=== PATIENT | male | born 1955 | race Caucasian/White ===

== ENCOUNTER → 2017-09-17 12:31 | Outpatient (CLI) | payer OTHER, SELFPAY ==
--- NOTE | 2017-09-17 12:34 | VDLE_ITS ---
Reason For Study: BLE pain/edema RIGHT LEFT GSV is normal. GSV is normal. CFV is compressible, spontaneous, phasic, CFV is compressible, spontaneous, phasic, competent and demonstrates normal competent, and demonstrates normal augmentation. augmentation. FV is compressible, spontaneous, phasic, FV is compressible, spontaneous, phasic, competent and demonstrates normal competent and demonstrates normal augmentation. augmentation. POP V is compressible, spontaneous, phasic, POP V is compressible, spontaneous, phasic, competent and demonstrates normal competent and demonstrates normal augmentation. augmentation. T/P Trunk is compressible. T/P Trunk is compressible. PTV is compressible. PTV is compressible. RT PerV is compressible. LT PerV is compressible. Procedure Exam performed in department. The exam was diagnostic. A preliminary report was called and/or faxed to Richard DICKERSON @ 1:15 pm. Interpretation Summary Deep veins of the lower extremities are bilaterally patent and compressible segmentally. There is no evidence of deep vein thrombosis on either side. Valvular competence appears intact within the proximal deep venous systems bilaterally. The greater saphenous veins appear bilaterally patent and compressible segmentally. Ordering Physician: JAYLA Hurley Referring Physician: Richard Botello Performed By: Leticia Sanchez, RDCS, RVT
== END ==
PROVIDERS: Family Provider Nurse Practitioner Family; PCP Nurse Practitioner Family; Visit Provider Nurse Practitioner Family
DX: M79.604 Pain in right leg (principal); M79.605 Pain in left leg; I10 Essential (primary) hypertension
CPT/HCPCS: 93970

== ENCOUNTER → 2017-09-27 12:35 | Outpatient (CLI) | payer OTHER, SELFPAY ==
--- NOTE | 2017-09-29 20:22 | LEAS ---
Arterial Study - Arterial Study Arterial Study: This is a 62-year-old male with a history of hypertension. Suspecting the presence of atherosclerotic peripheral arterial occlusive disease, the patient was brought to the noninvasive vascular laboratory at this time for the purpose of bilateral noninvasive lower extremity arterial assessment. Doppler signal assessment was used to evaluate the pulses at ankle level bilaterally. The posterior tibial and dorsalis pedis pulses were triphasic bilaterally. Segmental limb pressures were obtained bilaterally. The right ankle pressure, as determined by posterior tibial pulse, was measured at 155 mmHg. The right ankle pressure, as determined by dorsalis pedis pulse, was measured at 139 mmHg. The right digital pressure was measured at 127 mmHg. The left ankle pressure, as determined by posterior tibial pulse, was measured at 155 mmHg. The left ankle pressure, as determined by dorsalis pedis pulse, was measured at 130 mmHg. The left digital pressure was measured at 111 mmHg. Pulse-volume recordings were obtained bilaterally and segmentally. Waveform amplitudes appeared to be satisfactory at all levels bilaterally, but for the left digital level, which was mildly diminished. Resting ankle-brachial indices were calculated bilaterally. The resting right ankle-brachial index was calculated to be 1.38. The resting left ankle-brachial index was calculated to be 1.38. Digital-brachial indices were calculated bilaterally. The right digital-brachial index was calculated to be 1.13. The left digital-brachial index was calculated to be 0.99. Impression: Based upon the findings of this resting noninvasive lower extremity arterial study, there is no evidence of significant atherosclerotic peripheral arterial occlusive disease in the lower extremities bilaterally. Triphasic waveforms were noted at ankle level bilaterally. Resting ankle-brachial indices were bilaterally normal. Digital-brachial indices were also normal bilaterally. In summary, this represents a normal resting noninvasive lower extremity arterial study bilaterally
--- NOTE | 2017-09-29 20:26 | LEAS_ITS ---
Arterial Study - Arterial Study Arterial Study: This is a 62-year-old male with a history of hypertension. Suspecting the presence of atherosclerotic peripheral arterial occlusive disease, the patient was brought to the noninvasive vascular laboratory at this time for the purpose of bilateral noninvasive lower extremity arterial assessment. Doppler signal assessment was used to evaluate the pulses at ankle level bilaterally. The posterior tibial and dorsalis pedis pulses were triphasic bilaterally. Segmental limb pressures were obtained bilaterally. The right ankle pressure, as determined by posterior tibial pulse, was measured at 155 mmHg. The right ankle pressure, as determined by dorsalis pedis pulse, was measured at 139 mmHg. The right digital pressure was measured at 127 mmHg. The left ankle pressure, as determined by posterior tibial pulse, was measured at 155 mmHg. The left ankle pressure, as determined by dorsalis pedis pulse, was measured at 130 mmHg. The left digital pressure was measured at 111 mmHg. Pulse-volume recordings were obtained bilaterally and segmentally. Waveform amplitudes appeared to be satisfactory at all levels bilaterally, but for the left digital level, which was mildly diminished. Resting ankle-brachial indices were calculated bilaterally. The resting right ankle-brachial index was calculated to be 1.38. The resting left ankle- brachial index was calculated to be 1.38. Digital-brachial indices were calculated bilaterally. The right digital- brachial index was calculated to be 1.13. The left digital-brachial index was calculated to be 0.99. Impression: Based upon the findings of this resting noninvasive lower extremity arterial study, there is no evidence of significant atherosclerotic peripheral arterial occlusive disease in the lower extremities bilaterally. Triphasic waveforms were noted at ankle level bilaterally. Resting ankle-brachial indices were bilaterally normal. Digital-brachial indices were also normal bilaterally. In summary, this represents a normal resting noninvasive lower extremity arterial study bilaterally
== END ==
PROVIDERS: Family Provider Nurse Practitioner Family; PCP Nurse Practitioner Family; Visit Provider Nurse Practitioner Family
DX: I89.0 Lymphedema, not elsewhere classified (principal); M79.604 Pain in right leg; M79.605 Pain in left leg; I10 Essential (primary) hypertension
CPT/HCPCS: 93923

== ENCOUNTER → 2017-10-14 16:00 | Outpatient (CLI) | payer OTHER, SELFPAY ==
[2017-10-14 17:56] LABS: Absolute Lymphocyte Count 0.68 X10^3/ul (0.83-4.51); Absolute Neutrophil Count 6.3 X10^3/uL (2.0-7.7); Basophil# 0.05 X10^3/uL; Basophil% 0.6 % (0-1); Eosinophil# 0.36 X10^3/uL; Eosinophils% 4.4 % (0-5); Hematocrit 41.5 % (40-54); Hemoglobin 14.2 g/dl (13.0-16.5); Lymphocyte # 0.68 X10^3/ul (4.0); Lymphocyte % 8.3 % (19-41); Mean Corp Hgb Conc 34.2 g/gl (32-36); Mean Corpuscular Hgb 33.6 pg (27.0-32.0); Mean Corpuscular Volume 98.1 fL (80-94); Mean Platelet Vol. 8.8 fl (6.2-12.0); Monocyte# 0.75 X10^3/uL; Monocyte% 9.2 % (0-10); Neutrophil # 6.28 X10^3/uL (2.7-7.7); Neutrophil % 77.1 % (47-70); Platelet Count 239 K/mm3 (150-450); RBC Distribution Width CV 13.3 % (11.6-14.6); RBC Distribution Width SD 46.4 fl (35.1-43.9); Red Blood Count 4.23 M/mm3 (4.6-6.2); White Blood Count 8.2 K/mm3 (4.4-11.0)
[2017-10-14 18:07] LABS: POSITIVE COUNT NO; POSITIVE DIFFERENTIAL NO; POSITIVE MORPHOLOGY NO
[2017-10-14 18:25] LABS: ALB/GLOB Ratio 1.1 RATIO (0.9-2.4); AST(SGOT) 18 U/L (15-37); Alanine Aminotransfer ALT/SGPT 26 U/L (16-61); Albumin, Serum 3.5 g/dL (3.2-5.0); Alkaline Phosphatase 71 U/L (45-117); Anion Gap 6 (5-15); BUN 11 mg/dL (7-18); BUN/Creat Ratio 16.2 RATIO (10-20); Calcium,Total 8.4 mg/dL (8.5-10.1); Chloride 98 mmol/L (98-107); Creatinine, Serum 0.68 mg/dL (0.70-1.30); EST Glomerular Filtration Rate 125 mL/min (>60); Est Glom Filt Rate - Afr Amer 152 mL/min (>60); Globulin 3.2 g/dL (2.2-4.2); Glucose 99 mg/dL (74-106); Potassium 3.8 mmol/L (3.5-5.1); Protein, Total 6.7 g/dL (6.4-8.2); Sodium Level 134 mmol/L (136-145)
[2017-10-19 08:12] LABS: QNTFERON TB Ag Minus Nil Value 0.01 IU/mL (.); QNTFERON TB Ag Value 0.04 IU/mL (.); QNTFERON TB Nil Value 0.03 IU/mL (.)
[2017-10-19 11:17] LABS: QNTIFERON TB Gold Negative (Negative)
== END ==
PROVIDERS: Family Provider Family Medicine; PCP Family Medicine; Visit Provider Nurse Practitioner Family
DX: L27.0 Generalized skin eruption due to drugs and medicaments taken internally (principal); L40.0 Psoriasis vulgaris; R60.0 Localized edema; Z79.899 Other long term (current) drug therapy; I83.12 Varicose veins of left lower extremity with inflammation; I83.11 Varicose veins of right lower extremity with inflammation
CPT/HCPCS: 36415; 80053; 84443; 85025; 86480

== ENCOUNTER → 2017-10-19 09:41 | Outpatient (CLI) | payer OTHER, SELFPAY ==
--- NOTE | 2017-10-19 09:43 | RAD_ITS ---
STUDY: X-RAY - PELVIS REASON FOR EXAM: Male, 62 years old. Psoriasis, lymphedema TECHNIQUE: Two views of the pelvis were obtained. COMPARISON: Lumbar spine 08/05/2015. FINDINGS: There is a non-specific bowel gas pattern. Normal visualized soft tissue structures. Normal bilateral iliac wings and visualized sacrum. Stable degenerative change inferior aspect of left sacroiliac joint. Normal visualized bilateral superior and inferior pubic rami. Normal pubic symphysis. Normal ischial tuberosities. Normal visualized right femoral head. Normal right acetabulum. There is mild articular joint space narrowing of the right hip. Normal visualized left femoral head. Normal left acetabulum. There is mild articular joint space narrowing of the left hip. RAD/Pelvis 1 or 2 Views IMPRESSION: Mild bilateral hip joint space narrowing. No fracture. Electronically Signed: Dave Mancuso DO at 0:03 EDT , Service support ,
--- NOTE | 2017-10-19 09:44 | RAD_ITS ---
STUDY: X-RAY CHEST REASON FOR EXAM: Male, 62 years old. Lymphedema, hypertension TECHNIQUE: Frontal and lateral views of the chest. COMPARISON: 11/30/2012. FINDINGS: The lungs are clear and expanded. There is no demonstrated pleural abnormality. Normal size heart. Normal mediastinum and shlomo. Normal visualized pulmonary arteries. Normal visualized aortic arch and descending thoracic aorta. Normal visualized thoracic spine. Normal visualized ribs, clavicles, and shoulders. There is no demonstrated abnormality of the visualized soft tissue structures of the upper abdomen. RAD/Chest PA and Lateral IMPRESSION: No acute cardiopulmonary disease. Electronically Signed: Dave Mancuso DO at 23:58 EDT , Service support ,
[2017-10-19 12:07] LABS: Absolute Lymphocyte Count 1.03 X10^3/ul (0.83-4.51); Absolute Neutrophil Count 3.5 X10^3/uL (2.0-7.7); Basophil% 1.5 % (0-1); Eosinophil# 0.92 X10^3/uL; Hematocrit 43.2 % (40-54); Hemoglobin 14.8 g/dl (13.0-16.5); Lymphocyte # 1.03 X10^3/ul (4.0); Lymphocyte % 15.7 % (19-41); Mean Corp Hgb Conc 34.3 g/gl (32-36); Mean Corpuscular Hgb 33.3 pg (27.0-32.0); Mean Corpuscular Volume 97.1 fL (80-94); Mean Platelet Vol. 9.1 fl (6.2-12.0); Monocyte% 15.3 % (0-10); Neutrophil # 3.48 X10^3/uL (2.7-7.7); Neutrophil % 53.2 % (47-70); Platelet Count 268 K/mm3 (150-450); RBC Distribution Width CV 13.6 % (11.6-14.6); RBC Distribution Width SD 46.9 fl (35.1-43.9); Red Blood Count 4.45 M/mm3 (4.6-6.2); White Blood Count 6.6 K/mm3 (4.4-11.0)
[2017-10-19 12:12] LABS: POSITIVE COUNT NO; POSITIVE DIFFERENTIAL NO; POSITIVE MORPHOLOGY NO
[2017-10-19 12:14] LABS: ALB/GLOB Ratio 1.2 RATIO (0.9-2.4); AST(SGOT) 25 U/L (15-37); Alanine Aminotransfer ALT/SGPT 32 U/L (16-61); Albumin, Serum 3.9 g/dL (3.2-5.0); Alkaline Phosphatase 70 U/L (45-117); Anion Gap 8 (5-15); BUN 17 mg/dL (7-18); BUN/Creat Ratio 19.2 RATIO (10-20); Calcium,Total 8.6 mg/dL (8.5-10.1); Chloride 93 mmol/L (98-107); Creatinine, Serum 0.89 mg/dL (0.70-1.30); EST Glomerular Filtration Rate 92 mL/min (>60); Est Glom Filt Rate - Afr Amer 111 mL/min (>60); Globulin 3.3 g/dL (2.2-4.2); Glucose 97 mg/dL (74-106); Potassium 4.2 mmol/L (3.5-5.1); Protein, Total 7.2 g/dL (6.4-8.2); Sodium Level 130 mmol/L (136-145)
[2017-10-25 12:07] LABS: QNTFERON TB Ag Minus Nil Value < 0 IU/mL (.); QNTFERON TB Ag Value 0.02 IU/mL (.); QNTFERON TB Mitogen Value > 10.00 IU/mL (.); QNTFERON TB Nil Value 0.03 IU/mL (.)
[2017-10-25 14:47] LABS: CCP IgG Antibodies 17 units (0-19); HEPATITIS B SURFACE AG Negative (Negative); HLA B27 Negative (.); Hep B Surface Antibodies Non Reactive (.); Hep C Antibodies >11.0 s/co ratio (0.0-0.9); QNTIFERON TB Gold Negative (Negative)
== END ==
PROVIDERS: Family Provider Family Medicine; PCP Family Medicine; Visit Provider Internal Medicine Rheumatology
DX: L40.8 Other psoriasis (principal); I89.0 Lymphedema, not elsewhere classified; I10 Essential (primary) hypertension
CPT/HCPCS: 36415; 71046; 72170; 80053; 81374; 85025; 86200; 86480; 86706; 86803; 87340

== ENCOUNTER → 2017-10-27 09:31 | Outpatient (CLI) | payer OTHER, SELFPAY ==
--- NOTE | 2017-10-27 09:37 | ECHOD_ITS ---
Reason For Study: Edema Procedure This was a 2D Doppler, Color Flow transthoracic echocardiogram. Exam performed in department. Left Ventricle Normal size and thickness. The estimated ejection fraction is 65 %. Normal diastology for age. No regional wall motion abnormalities noted. Right Ventricle Normal size and thickness. Normal systolic function. Atria Normal left atrium. Normal right atrium. Normal atrial septum. Mitral Valve The mitral valve is structurally normal. No prolapse or stenosis seen. Trivial mitral valve insufficiency. Tricuspid Valve Normal tricuspid valve. Trivial tricuspid valve insufficiency. Right ventricular systolic pressure estimated to be 27 mmHg. Aortic Valve Trisinus/trileaflet aortic valve. Normal aortic valve. Pulmonic Valve Normal pulmonic valve. Great Vessels Normal aortic root. Normal arch. Normal inferior vena cava. Inferior vena cava collapse with sniff. Pericardium/Pleural No pericardial effusion. MMode/2D Measurements & Calculations LVIDd: 4.8 cm IVSd: 1.2 cm Ao root diam: 3.6 cm LVIDs: 3.4 cm LVPWd: 1.2 cm LA dimension: 3.7 cm RVDd: 4.1 cm FS: 29.2 % LAV(MOD-bp): 45.3 ml LA A4 area: 14.9 cm2 RA A4 area: 17.0 cm2 LAV(MOD-bp) Indexed: 19.6 ml/m2 LAV(MOD-sp2): 52.6 ml LAV(MOD-sp4): 31.3 ml Doppler Measurements & Calculations MV E max xavier: 96.7 cm/sec Lat Peak E' Xavier: 9.3 cm/sec Med Peak E' Xavier: 7.4 cm/sec MV A max xavier: 87.3 cm/sec E/E' lat: 10.4 E/E' med: 13.0 MV E/A: 1.1 Ao V2 max: 125.9 cm/sec LV V1 max: 101.8 cm/sec PA V2 max: 103.4 cm/sec Ao max P.3 mmHg LV V1 max P.1 mmHg Ao V2 mean: 94.6 cm/sec Ao mean P.8 mmHg Ao V2 VTI: 29.1 cm TR max xavier: 234.3 cm/sec TR max P.0 mmHg Interpretation Summary The estimated ejection fraction is 65 %. Normal diastology for age. Trivial mitral valve insufficiency. Trivial tricuspid valve insufficiency. Right ventricular systolic pressure estimated to be 27 mmHg. There is no comparison study available. Ordering Physician: Zafar Mon Referring Physician: Zafar Mon Performed By: Alissa Perez, WALTER, RVT
== END ==
PROVIDERS: Family Provider Family Medicine; PCP Family Medicine; Visit Provider Family Medicine
DX: R60.0 Localized edema (principal)
CPT/HCPCS: 93306

== ENCOUNTER → 2017-11-01 12:18 | Outpatient (CLI) | payer OTHER, SELFPAY ==
[2017-11-02 20:09] LABS: HCV Quant. RNA PCR HCV Not Detected IU/mL (.)
== END ==
PROVIDERS: Family Provider Family Medicine; PCP Family Medicine; Visit Provider Internal Medicine Rheumatology
DX: L40.8 Other psoriasis (principal); I89.0 Lymphedema, not elsewhere classified; I87.2 Venous insufficiency (chronic) (peripheral); I10 Essential (primary) hypertension
CPT/HCPCS: 36415; 87522

== ENCOUNTER → 2017-11-15 13:02 | Outpatient (CLI) | payer OTHER, SELFPAY ==
[2017-11-15 14:16] LABS: Anion Gap 7 (5-15); BUN 17 mg/dL (7-18); BUN/Creat Ratio 20.2 RATIO (10-20); Calcium,Total 8.2 mg/dL (8.5-10.1); Chloride 95 mmol/L (98-107); Creatinine, Serum 0.84 mg/dL (0.70-1.30); EST Glomerular Filtration Rate 98 mL/min (>60); Est Glom Filt Rate - Afr Amer 119 mL/min (>60); Glucose 101 mg/dL (74-106); PSA,Total - Annual Screen 0.88 ng/mL (0.00-4.00); Potassium 3.7 mmol/L (3.5-5.1); Sodium Level 134 mmol/L (136-145)
== END ==
PROVIDERS: Family Provider Family Medicine; PCP Family Medicine; Visit Provider Family Medicine
DX: Z12.5 Encounter for screening for malignant neoplasm of prostate (principal); I89.0 Lymphedema, not elsewhere classified
CPT/HCPCS: 36415; 80048; 84153; G0103

== ENCOUNTER 2017-11-23 12:42 | Outpatient (RCR) | payer OTHER, SELFPAY ==
--- NOTE | 2017-11-23 14:34 | HP.OTEVAL ---
Patient's Visit Information SARAH CATHERINE is a 62 year old M, referred to Occupational Therapy by Zafar Mon, with a diagnosis of Lymphedema. Date of Evaluation: 11/23/17 Occupational Therapist: Caitlin Kiran, CYNTHIAR/L, CHT - Subjective Subjective: Pt reports he has been struggling with swelling in his LE- Aug 2017- pt states he is attempting to keep his YOON elevated- with water pill and use of walking shoes-due to cracks on the bottom of his feet. pt states he has been off work for three months- and would like to get back to work- Pt states he does have compression socks- 20-30mmHg pt states he got them at [employer] -pt states he is wearing his compression socks at times but nothing consistent. - Lymphedema (Circumferential Measure) Mid-foot: R/L 29cm/28cm Ankle: R/L 32cm/31cm Lower calf: R/L 35cm/32cm Largest calf: R/L 44cm/43cm Below knee: R/L 36cm/37cm - Sensation Sensation Comments: denies - Lower Limb Functional Index Lower Extremity Functional Score: 19 - Goals Demonstrate a 20% reduction in edema by d/c: Yes Demonstrate adequate knowledge of self-massage by 2nd week: Yes Demonstrate adequate knowledge skin care/prec by 2nd week: Yes Demonstrate adequate knowledge therapeutic exercises by d/c: Yes Select approp compression garment w/donning/care/wear by d/c: Yes Voice need to replace compression garment every 4-6mo by dc: Yes - Rehabilitation General Assessment: Pt demo with edema in BLE- Red sores and seeping of LE from above knees down to his feet- dried scabs over seeping wounds. Rehabilitation Potential: Fair - Anticipated Interventions Anticipated Interventions: Education re Diagnosis, Manual Lymph Drainage, Education re Life-long lymphedema Management, Education re Skin Care and Precautions, Education re Correct Donning Tech,Care&Wearing Sched Comp Garments - Visit Plan Frequency: Every Other Week Duration: 2 Months TEXT: Thank you for the opportunity to evaluate your patient. For Medicare and Medicare HMO plans, please review the plan of care and approve it. It will need to be FAXED BACK to us at [phone] for Medicare purposes. Please let me know if there are questions or concerns regarding this plan of care. Physician Signature: Date:
--- NOTE | 2018-01-19 09:21 | HP.OT.NRP ---
HP - Discharge Summary - Patient Information SARAH CATHERINE was seen in my office for initial evaluation on 11/23/17. The following Plan of Care was established for this patient: Initial Frequency: Every Other Week Initial Duration: 2 Months - Anticipated Interventions Anticipated Interventions: Education re Diagnosis, Manual Lymph Drainage, Education re Life-long lymphedema Management, Education re Skin Care and Precautions, Education re Correct Donning Tech,Care&Wearing Sched Comp Garments This patient was last seen in our office 11/23/17. Pertinent comments regarding their Occupational therapy will appear below: Pt was seen for inital eval only- therapist ed. pt on compression hose and alternative compression devices- pt called and stated with change in his cardio medication he has not had the swelling in his LE. States he is using knee high compression hose. pt agree to D/C as therapy services are no longer needed. At this point I will be discontinuing this patient from occupational therapy. I would be happy to see this patient again in the future if found appropriate by the physician. Thank you! Caitlin Kiran, OTR/L, CHT
== END 2017-11-23 19:00 | disposition home or self-care (01) ==
LOC: OT 12:42
PROVIDERS: Family Provider Family Medicine; PCP Family Medicine; Visit Provider Family Medicine
DX: I89.0 Lymphedema, not elsewhere classified (principal)
CPT/HCPCS: 97166

== ENCOUNTER 2017-12-02 13:07 | Outpatient (RCR) | payer OTHER, SELFPAY ==
[2017-12-02 13:52] VITALS: BP 179/78; PULSE 99; RESP 18; TEMP 37.2; BMI 29.5
--- NOTE | 2017-12-02 19:59 | PCM.WC.HP ---
(1) Lymphedema of both lower extremities Status: Acute Code(s): I89.0 - Lymphedema, not elsewhere classified (2) PRP (pityriasis rubra pilaris) Status: Acute Code(s): L44.0 - Pityriasis rubra pilaris (3) Psoriasis Status: Acute Code(s): L40.9 - Psoriasis, unspecified History of Present Illness Date of Service: 12/02/17 Chief Complaint: Referred from lymphedema clinic, possible wounds on the lower extremities History of Wound: This is a 62-year-old white male who presents to the office today after being referred from the lymphedema clinic for possible wounds on his lower extremities. However the patient states that he does not have any open wounds currently on areas lower extremities and that he has been being treated with an antibiotic prophylactically to prevent new wounds from occurring. He states that he has been dealing with bilateral lymphedema and scaling of his lower extremities ?1.5 months. He has been seen by a barrel liner and a advanced manufacturing engineer and at first, given the diffuse nature of his red scaly patches which are on his entire body, he was diagnosed with psoriasis. However he was most recently diagnosed with PRP via a biopsy and states that he has to start Humira tomorrow as prescribed by the barrel liner. He states that for his lymphedema management he has currently been using Jobest stockings, he does state that he has some cracked areas on his feet, however they are not open. He has in the past used prescription strength steroid creams, however since he will be starting the Humira soon, he has discontinued all prescription strength creams. He denies any acute concerns at this time and does state that he had unna boots applied previously in the past. The patient otherwise denies any fever, chills, nausea, vomiting, shortness of breath, chest pain or pressure, palpitations, orthopnea, syncope or presyncopal episodes. Past Medical History Allergies/Adverse Reactions: Allergies No Known Allergies Allergy (Verified 07/30/15 05:19) Smoking Status: Never smoker Review of Systems Constitutional: Denies: Chills, Fever, Weight Change Eyes: Denies: Pain, Vision Change HEENT: Denies: Difficulty Hearing, Difficulty Swallowing, Sinus Congestion Cardiovascular: Reports: Edema. Denies: Chest Pain, Palpitations Respiratory: Denies: Cough, Shortness of Breath Gastrointestinal: Denies: Diarrhea, Nausea, Vomiting Genitourinary: Denies: Dysuria, Hematuria Skin: Reports: Dryness, Skin Changes - see HPI Psychiatric: Denies: Anxiety, Depression Endocrine: Denies: Heat/ Cold Intolerance, Polydipsia, Polyuria Hematologic/ Lymphatic: Denies: Easy Bruising, Easy Bleeding - Physical Exam Vital Signs Temp Pulse Resp BP 98.9 F 99 18 179/78 H 12/02/17 13:52 12/02/17 13:52 12/02/17 13:52 12/02/17 13:52 General: Alert, Oriented x3, Cooperative, No apparent distress HEENT: PERRLA, EOMI Neck: Supple Lungs: Clear to auscultation Cardiovascular: Regular rate, Regular Rhythm, Normal S1, Normal S2, No murmurs Abdomen: Bowel Sounds Present, Soft Extremities: No clubbing, No cyanosis, Diminished Peripheral Pulses - secondary to edema, though palpable lower extremities, Edema - 3+ BLLE edema, extends just above the knee Skin: - - Patient's lower extremities areas of patchy dry scaly skin and diffuse erythematous areas as well which extend from his lower extremities to his abdomen and are diffusely on his arms and back as well. No open areas at this time, no active wounds currently. Has bilateral plantar surfaces of his feet do have some dry and cracked areas, otherwise within normal limits. Musculoskeletal: No Tenderness to Palpation of Joints or Extremities Neurological: Cranial nerves II-XII grossly intact, Neuro grossly intact Psych/Mental Status: Normal Affect, Alert and oriented to time, place, person, mood and affect Debridement Note No debridement was completed today Assessment/Plan Assessment: Lymphedema bilateral lower extremities. PRP. Psoriasis Plan: The patient was seen and evaluated the wound healing center today and updated on his plan of care. He has been seen and evaluated by multiple specialists including the lymphedema clinic, a advanced manufacturing engineer, and a barrel liner. Will request records for continuity of care and to prevent unnecessary repeat testing. Will request any prior vascular studies that were done recently, recent ABIs were reviewed and demonstrated 1.38 bilaterally no venous studies available at this time. Given the fact that there is no open wound, no wound management discussed at this time. He will continue with his preventative measures by controlling the lymphedema by wearing his Jobst stockings that are 20-30 mmHg compression. Given the systemic nature of his symptoms, do feel that there is a potential rheumatologic component which he has been seen by dermatology and rheumatology for and starts Humira therapy tomorrow. Did discuss with him following up with his specialists regarding the use of [id number] creams for his dry skin on the lower extremities. However, will see how patient does on the Humira therapy prior to initiating further management of lymphedema treatment. Interventions to consider in the future include the use of bilateral Unna boots. He will continue following up with a specialist and he will follow-up at the wound healing center in 2 weeks or sooner if needed. Code Visit Office Visits / Consults: [id number] OV L4 New
--- NOTE | 2017-12-08 09:09 | HP.PCM_ITS ---
(1) Lymphedema of both lower extremities Status: Acute Code(s): I89.0 - Lymphedema, not elsewhere classified (2) PRP (pityriasis rubra pilaris) Status: Acute Code(s): L44.0 - Pityriasis rubra pilaris (3) Psoriasis Status: Acute Code(s): L40.9 - Psoriasis, unspecified History of Present Illness Date of Service: 12/02/17 Chief Complaint: Referred from lymphedema clinic, possible wounds on the lower extremities History of Wound: This is a 62-year-old white male who presents to the office today after being referred from the lymphedema clinic for possible wounds on his lower extremities. However the patient states that he does not have any open wounds currently on areas lower extremities and that he has been being treated with an antibiotic prophylactically to prevent new wounds from occurring. He states that he has been dealing with bilateral lymphedema and scaling of his lower extremities ?1.5 months. He has been seen by a personal lines appraiser and a resolution manager and at first, given the diffuse nature of his red scaly patches which are on his entire body, he was diagnosed with psoriasis. However he was most recently diagnosed with PRP via a biopsy and states that he has to start Humira tomorrow as prescribed by the personal lines appraiser. He states that for his lymphedema management he has currently been using Jobest stockings, he does state that he has some cracked areas on his feet, however they are not open. He has in the past used prescription strength steroid creams, however since he will be starting the Humira soon, he has discontinued all prescription strength creams. He denies any acute concerns at this time and does state that he had unna boots applied previously in the past. The patient otherwise denies any fever, chills, nausea, vomiting, shortness of breath, chest pain or pressure, palpitations, orthopnea, syncope or presyncopal episodes. Past Medical History Allergies/Adverse Reactions: Allergies No Known Allergies Allergy (Verified 07/30/15 05:19) Smoking Status: Never smoker Review of Systems Constitutional: Denies: Chills, Fever, Weight Change Eyes: Denies: Pain, Vision Change HEENT: Denies: Difficulty Hearing, Difficulty Swallowing, Sinus Congestion Cardiovascular: Reports: Edema. Denies: Chest Pain, Palpitations Respiratory: Denies: Cough, Shortness of Breath Gastrointestinal: Denies: Diarrhea, Nausea, Vomiting Genitourinary: Denies: Dysuria, Hematuria Skin: Reports: Dryness, Skin Changes - see HPI Psychiatric: Denies: Anxiety, Depression Endocrine: Denies: Heat/ Cold Intolerance, Polydipsia, Polyuria Hematologic/ Lymphatic: Denies: Easy Bruising, Easy Bleeding - Physical Exam Vital Signs Temp Pulse Resp BP 98.9 F 99 18 179/78 H 12/02/17 13:52 12/02/17 13:52 12/02/17 13:52 12/02/17 13:52 General: Alert, Oriented x3, Cooperative, No apparent distress HEENT: PERRLA, EOMI Neck: Supple Lungs: Clear to auscultation Cardiovascular: Regular rate, Regular Rhythm, Normal S1, Normal S2, No murmurs Abdomen: Bowel Sounds Present, Soft Extremities: No clubbing, No cyanosis, Diminished Peripheral Pulses - secondary to edema, though palpable lower extremities, Edema - 3+ BLLE edema, extends just above the knee Skin: - - Patient's lower extremities areas of patchy dry scaly skin and diffuse erythematous areas as well which extend from his lower extremities to his abdomen and are diffusely on his arms and back as well. No open areas at this time, no active wounds currently. Has bilateral plantar surfaces of his feet do have some dry and cracked areas, otherwise within normal limits. Musculoskeletal: No Tenderness to Palpation of Joints or Extremities Neurological: Cranial nerves II-XII grossly intact, Neuro grossly intact Psych/Mental Status: Normal Affect, Alert and oriented to time, place, person, mood and affect Debridement Note No debridement was completed today Assessment/Plan Assessment: Lymphedema bilateral lower extremities. PRP. Psoriasis Plan: The patient was seen and evaluated the wound healing center today and updated on his plan of care. He has been seen and evaluated by multiple specialists including the lymphedema clinic, a resolution manager, and a personal lines appraiser. Will request records for continuity of care and to prevent unnecessary repeat testing. Will request any prior vascular studies that were done recently, recent ABIs were reviewed and demonstrated 1.38 bilaterally no venous studies available at this time. Given the fact that there is no open wound, no wound management discussed at this time. He will continue with his preventative measures by controlling the lymphedema by wearing his Jobst stockings that are 20-30 mmHg compression. Given the systemic nature of his symptoms, do feel that there is a potential rheumatologic component which he has been seen by dermatology and rheumatology for and starts Humira therapy tomorrow. Did discuss with him following up with his specialists regarding the use of [id number] creams for his dry skin on the lower extremities. However, will see how patient does on the Humira therapy prior to initiating further management of lymphedema treatment. Interventions to consider in the future include the use of bilateral Unna boots. He will continue following up with a specialist and he will follow-up at the wound healing center in 2 weeks or sooner if needed. Code Visit Office Visits / Consults: [id number] OV L4 New
== END 2017-12-06 23:59 ==
LOC: WC 13:07
PROVIDERS: Family Provider Family Medicine; PCP Family Medicine; Visit Provider Nurse Practitioner Family
DX: I89.0 Lymphedema, not elsewhere classified (principal); L44.0 Pityriasis rubra pilaris; L40.9 Psoriasis, unspecified
CPT/HCPCS: 99213; G0463

== ENCOUNTER → 2017-12-09 13:28 | Outpatient (CLI) | payer OTHER, SELFPAY ==
[2017-12-09 15:58] LABS: Anion Gap 7 (5-15); BUN 12 mg/dL (7-18); BUN/Creat Ratio 14.3 RATIO (10-20); Calcium,Total 8.4 mg/dL (8.5-10.1); Chloride 90 mmol/L (98-107); Creatinine, Serum 0.84 mg/dL (0.70-1.30); EST Glomerular Filtration Rate 98 mL/min (>60); Est Glom Filt Rate - Afr Amer 118 mL/min (>60); Glucose 100 mg/dL (74-106); Potassium 4.1 mmol/L (3.5-5.1); Sodium Level 128 mmol/L (136-145)
== END ==
PROVIDERS: Family Provider Family Medicine; PCP Family Medicine; Visit Provider Family Medicine
DX: I10 Essential (primary) hypertension (principal)
CPT/HCPCS: 36415; 80048

== ENCOUNTER 2018-01-06 14:00 | Outpatient (RCR) | payer OTHER, SELFPAY ==
[2017-12-07 01:17] VITALS: PULSE 99; RESP 18; TEMP 37.2
[2017-12-23 14:08] VITALS: BP 153/77; PULSE 97; RESP 20; TEMP 36.2
[2017-12-27 13:37] VITALS: BP 136/76; PULSE 83; RESP 20; TEMP 35.9
--- NOTE | 2017-12-27 19:25 | PCM.WC.PN ---
(1) Lymphedema of both lower extremities Status: Acute Current Visit: Yes Code(s): I89.0 - Lymphedema, not elsewhere classified (2) PRP (pityriasis rubra pilaris) Status: Acute Current Visit: Yes Code(s): L44.0 - Pityriasis rubra pilaris (3) Psoriasis Status: Acute Current Visit: Yes Code(s): L40.9 - Psoriasis, unspecified Type of Wound Date of Service: 12/23/17 Chief Complaint: Referred from lymphedema clinic, possible wounds on the lower extremities History of Wound: This is a 62-year-old white male who presents to the office today after being referred from the lymphedema clinic for possible wounds on his lower extremities. However the patient states that he does not have any open wounds currently on areas lower extremities and that he has been being treated with an antibiotic prophylactically to prevent new wounds from occurring. He states that he has been dealing with bilateral lymphedema and scaling of his lower extremities ?1.5 months. He has been seen by a education and training coordinator and a vba programmer and at first, given the diffuse nature of his red scaly patches which are on his entire body, he was diagnosed with psoriasis. However he was most recently diagnosed with PRP via a biopsy and states that he has to start Humira tomorrow as prescribed by the education and training coordinator. He states that for his lymphedema management he has currently been using Jobest stockings, he does state that he has some cracked areas on his feet, however they are not open. He has in the past used prescription strength steroid creams, however since he will be starting the Humira soon, he has discontinued all prescription strength creams. He denies any acute concerns at this time and does state that he had unna boots applied previously in the past. The patient otherwise denies any fever, chills, nausea, vomiting, shortness of breath, chest pain or pressure, palpitations, orthopnea, syncope or presyncopal episodes. Progress of Wound: The patient does not have any active wounds at this time. He states that his education and training coordinator recently started him on Enbrel which is helping with his systemic psoriasis. He states that he has not started his lymphedema pumps as was ordered for him from the lymphedema clinic, he continues with his compression stockings at this time. He continues to complain of lower extremity edema and redness with serous drainage. He also complains of calluses on bilateral plantar surfaces. He denies any systemic signs of infection at this time. He does state that he has had Unna boots in the past which he tolerated well. - Physical Exam Vital Signs Temp Pulse Resp BP 96.6 F L 83 20 H 136/76 H 12/27/17 13:37 12/27/17 13:37 12/27/17 13:37 12/27/17 13:37 General: Alert, Oriented x3, Cooperative, No apparent distress HEENT: Atraumatic Lungs: Clear to auscultation, Normal air movement Cardiovascular: Regular rate, Regular Rhythm Abdomen: Bowel Sounds Present Extremities: Edema - 3+ pitting bilateral lower extremity edema extending above the knee, Peripheral Pulses Normal, - - Calluses present plantar surfaces and thickened nails on toes Skin: - - Bilateral lower extremities erythematous, however not warm to touch or tender. Areas of red scaly flaky patches present bilateral lower extremities upper thighs and diffusely abdomen and back and bilateral upper extremities, however has improved since last appointment. Wound Measurements and Assessment WC - Nurse 1 - General Ulcer Measurement Start: 12/23/17 13:56 Freq: Status: Active Protocol: Activity Type Activity Date Activity User E-Sign Co-Sign Detail Recorded Client Recorded Date Recorded By Document 12/27/17 13:37 DL [id number] 12/27/17 13:40 DL 12/27/17 13:37 Wound Center Nurse 1 [Ulcer Assessment] #1- BLE EDEMA -Exudate Amt Medium (34-66%) -Exudate Type Serosanguineous -Structure Exposed N/A -Texture (Betty-wound Skin Appearance) Excoriation -Moisture (Betty-wound Skin Appearance Dry/Scaly ) -Color (Betty-wound Skin Appearance) Erythema -Temperature (Betty-wound Skin No Abnormality Appearance) (Pt Warm) -Tenderness on Palpation (Betty-wound No Skin Appearance) -Ulcer Cleansing Wound Cleanser -Foul Odor after Cleansing No [Edema Assessment] -Right Calf (cm) 43 -Right Ankle (cm) 44 -Left Calf (cm) 44 -Left Ankle (cm) 30.2 Musculoskeletal: No Tenderness to Palpation of Joints or Extremities Neurological: Cranial nerves II-XII grossly intact Psych/Mental Status: Normal Affect, Alert and oriented to time, place, person, mood and affect Debridement Note Post-Debridement Measurements/Treatment WC - Nurse 2 - General Ulcer CM Notes Start: 12/23/17 13:56 Freq: Status: Active Protocol: Activity Type Activity Date Activity User E-Sign Co-Sign Detail Recorded Client Recorded Date Recorded By Document 12/23/17 14:58 [id number] 12/23/17 14:59 12/23/17 14:58 Wound Center Nurse 2 #1- BLE EDEMA -Time 14:59 -Correct Patient Yes -Correct Side, Site, Position Yes -Correct Procedure Yes -Procedure Performed No -Wound/Ulcer Outcome Not Healed -Ulcer Cleansing Not Cleansed -Foul Odor after Cleansing No -Bioengineered Tissue No -Bleeding Controlled with NA Pain Scale: 0-10 Numeric Is Patient Pain Free? Yes No debridement was completed today Assessment/Plan Active Problems Lymphedema of both lower extremities (Acute) PRP (pityriasis rubra pilaris) (Acute) Psoriasis (Acute) Assessment: Lymphedema bilateral lower extremities. PRP. Psoriasis Plan: The patient was seen and evaluated the wound healing center today and updated on his plan of care. He has been seen and evaluated by multiple specialists including the lymphedema clinic, a vba programmer, and a education and training coordinator. Will request records for continuity of care and to prevent unnecessary repeat testing. Will request any prior vascular studies that were done recently, recent ABIs were reviewed and demonstrated 1.38 bilaterally no venous studies available at this time. Given the fact that there is no open wound, no wound management discussed at this time. He will continue with his preventative measures by controlling the lymphedema by wearing his Jobst stockings that are 20-30 mmHg compression, his lymphedema pumps were ordered from the lymphedema clinic and are pending insurance authorization at this time. Given the systemic nature of his symptoms, do feel that there is a potential rheumatologic component which he has been seen by dermatology and rheumatology for and will continue with Enbrel therapy. Did discuss with him following up with his specialists regarding the use of xrri-[id number]-[id number] creams for his dry skin on the lower extremities. His lymphedema and superficial wound care at this time will consist of the application of bilateral Unna boots. He will continue following up with a specialist and he will follow-up at the wound healing center in 1 weeks or sooner if needed. He will have a nurse visit and 3 days to changes in Unna boots. Discuss red flag symptoms that require urgent medical attention patient verbalized understanding. Code Visit Office Visits / Consults: [id number] OV L3 Est
--- NOTE | 2017-12-27 19:33 | PN.PCM_ITS ---
(1) Lymphedema of both lower extremities Status: Acute Current Visit: Yes Code(s): I89.0 - Lymphedema, not elsewhere classified (2) PRP (pityriasis rubra pilaris) Status: Acute Current Visit: Yes Code(s): L44.0 - Pityriasis rubra pilaris (3) Psoriasis Status: Acute Current Visit: Yes Code(s): L40.9 - Psoriasis, unspecified Type of Wound Date of Service: 12/23/17 Chief Complaint: Referred from lymphedema clinic, possible wounds on the lower extremities History of Wound: This is a 62-year-old white male who presents to the office today after being referred from the lymphedema clinic for possible wounds on his lower extremities. However the patient states that he does not have any open wounds currently on areas lower extremities and that he has been being treated with an antibiotic prophylactically to prevent new wounds from occurring. He states that he has been dealing with bilateral lymphedema and scaling of his lower extremities ?1.5 months. He has been seen by a pastrycook's assistant and a law enforcement instructor and at first, given the diffuse nature of his red scaly patches which are on his entire body, he was diagnosed with psoriasis. However he was most recently diagnosed with PRP via a biopsy and states that he has to start Humira tomorrow as prescribed by the pastrycook's assistant. He states that for his lymphedema management he has currently been using Jobest stockings, he does state that he has some cracked areas on his feet, however they are not open. He has in the past used prescription strength steroid creams, however since he will be starting the Humira soon, he has discontinued all prescription strength creams. He denies any acute concerns at this time and does state that he had unna boots applied previously in the past. The patient otherwise denies any fever, chills, nausea, vomiting, shortness of breath, chest pain or pressure, palpitations, orthopnea, syncope or presyncopal episodes. Progress of Wound: The patient does not have any active wounds at this time. He states that his pastrycook's assistant recently started him on Enbrel which is helping with his systemic psoriasis. He states that he has not started his lymphedema pumps as was ordered for him from the lymphedema clinic, he continues with his compression stockings at this time. He continues to complain of lower extremity edema and redness with serous drainage. He also complains of calluses on bilateral plantar surfaces. He denies any systemic signs of infection at this time. He does state that he has had Unna boots in the past which he tolerated well. - Physical Exam Vital Signs Temp Pulse Resp BP 96.6 F L 83 20 H 136/76 H 12/27/17 13:37 12/27/17 13:37 12/27/17 13:37 12/27/17 13:37 General: Alert, Oriented x3, Cooperative, No apparent distress HEENT: Atraumatic Lungs: Clear to auscultation, Normal air movement Cardiovascular: Regular rate, Regular Rhythm Abdomen: Bowel Sounds Present Extremities: Edema - 3+ pitting bilateral lower extremity edema extending above the knee, Peripheral Pulses Normal, - - Calluses present plantar surfaces and thickened nails on toes Skin: - - Bilateral lower extremities erythematous, however not warm to touch or tender. Areas of red scaly flaky patches present bilateral lower extremities upper thighs and diffusely abdomen and back and bilateral upper extremities, however has improved since last appointment. Wound Measurements and Assessment WC - Nurse 1 - General Ulcer Measurement Start: 12/23/17 13:56 Freq: Status: Active Protocol: Activity Type Activity Date Activity User E-Sign Co-Sign Detail Recorded Client Recorded Date Recorded By Document 12/27/17 13:37 DL [id number] 12/27/17 13:40 DL 12/27/17 13:37 Wound Center Nurse 1 [Ulcer Assessment] #1- BLE EDEMA -Exudate Amt Medium (34-66%) -Exudate Type Serosanguineous -Structure Exposed N/A -Texture (Betty-wound Skin Appearance) Excoriation -Moisture (Betty-wound Skin Appearance Dry/Scaly ) -Color (Betty-wound Skin Appearance) Erythema -Temperature (Betty-wound Skin No Abnormality Appearance) (Pt Warm) -Tenderness on Palpation (Betty-wound No Skin Appearance) -Ulcer Cleansing Wound Cleanser -Foul Odor after Cleansing No [Edema Assessment] -Right Calf (cm) 43 -Right Ankle (cm) 44 -Left Calf (cm) 44 -Left Ankle (cm) 30.2 Musculoskeletal: No Tenderness to Palpation of Joints or Extremities Neurological: Cranial nerves II-XII grossly intact Psych/Mental Status: Normal Affect, Alert and oriented to time, place, person, mood and affect Debridement Note Post-Debridement Measurements/Treatment WC - Nurse 2 - General Ulcer CM Notes Start: 12/23/17 13:56 Freq: Status: Active Protocol: Activity Type Activity Date Activity User E-Sign Co-Sign Detail Recorded Client Recorded Date Recorded By Document 12/23/17 14:58 [id number] 12/23/17 14:59 12/23/17 14:58 Wound Center Nurse 2 #1- BLE EDEMA -Time 14:59 -Correct Patient Yes -Correct Side, Site, Position Yes -Correct Procedure Yes -Procedure Performed No -Wound/Ulcer Outcome Not Healed -Ulcer Cleansing Not Cleansed -Foul Odor after Cleansing No -Bioengineered Tissue No -Bleeding Controlled with NA Pain Scale: 0-10 Numeric Is Patient Pain Free? Yes No debridement was completed today Assessment/Plan Active Problems Lymphedema of both lower extremities (Acute) PRP (pityriasis rubra pilaris) (Acute) Psoriasis (Acute) Assessment: Lymphedema bilateral lower extremities. PRP. Psoriasis Plan: The patient was seen and evaluated the wound healing center today and updated on his plan of care. He has been seen and evaluated by multiple specialists including the lymphedema clinic, a law enforcement instructor, and a pastrycook's assistant. Will request records for continuity of care and to prevent unnecessary repeat testing. Will request any prior vascular studies that were done recently, recent ABIs were reviewed and demonstrated 1.38 bilaterally no venous studies available at this time. Given the fact that there is no open wound, no wound management discussed at this time. He will continue with his preventative measures by controlling the lymphedema by wearing his Jobst stockings that are 20-30 mmHg compression, his lymphedema pumps were ordered from the lymphedema clinic and are pending insurance authorization at this time. Given the systemic nature of his symptoms, do feel that there is a potential rheumatologic component which he has been seen by dermatology and rheumatology for and will continue with Enbrel therapy. Did discuss with him following up with his specialists regarding the use of zali-fac-zlfceyw creams for his dry skin on the lower extremities. His lymphedema and superficial wound care at this time will consist of the application of bilateral Unna boots. He will continue following up with a specialist and he will follow-up at the wound healing center in 1 weeks or sooner if needed. He will have a nurse visit and 3 days to changes in Unna boots. Discuss red flag symptoms that require urgent medical attention patient verbalized understanding. Code Visit Office Visits / Consults: [id number] OV L3 Est
[2017-12-30 14:09] VITALS: BP 150/99; PULSE 90; RESP 16; TEMP 36.8
--- NOTE | 2017-12-30 14:49 | PCM.WC.PN ---
(1) Lymphedema of both lower extremities Status: Acute Current Visit: Yes Code(s): I89.0 - Lymphedema, not elsewhere classified (2) PRP (pityriasis rubra pilaris) Status: Acute Current Visit: Yes Code(s): L44.0 - Pityriasis rubra pilaris (3) Psoriasis Status: Acute Current Visit: Yes Code(s): L40.9 - Psoriasis, unspecified Type of Wound Date of Service: 12/30/17 Chief Complaint: Referred from lymphedema clinic, possible wounds on the lower extremities History of Wound: This is a 62-year-old white male who presents to the office today after being referred from the lymphedema clinic for possible wounds on his lower extremities. However the patient states that he does not have any open wounds currently on areas lower extremities and that he has been being treated with an antibiotic prophylactically to prevent new wounds from occurring. He states that he has been dealing with bilateral lymphedema and scaling of his lower extremities ?1.5 months. He has been seen by a 911 emergency services dispatcher and a hr analyst and at first, given the diffuse nature of his red scaly patches which are on his entire body, he was diagnosed with psoriasis. However he was most recently diagnosed with PRP via a biopsy and states that he has to start Humira tomorrow as prescribed by the 911 emergency services dispatcher. He states that for his lymphedema management he has currently been using Jobest stockings, he does state that he has some cracked areas on his feet, however they are not open. He has in the past used prescription strength steroid creams, however since he will be starting the Humira soon, he has discontinued all prescription strength creams. He denies any acute concerns at this time and does state that he had unna boots applied previously in the past. The patient otherwise denies any fever, chills, nausea, vomiting, shortness of breath, chest pain or pressure, palpitations, orthopnea, syncope or presyncopal episodes. Progress of Wound: The patient does not have any active wounds at this time. He states that his 911 emergency services dispatcher recently started him on Enbrel which is helping with his systemic psoriasis. He states that he has not started his lymphedema pumps as was ordered for him from the lymphedema clinic at [facility]. He continues to complain of lower extremity edema and redness with serous drainage, however the drainage and redness has somewhat improved with the use of the Unna boots. He also complains of calluses on bilateral plantar surfaces which she was previously referred to podiatry for. He denies any systemic signs of infection at this time. - Physical Exam Vital Signs Temp Pulse Resp BP 98.2 F 90 16 150/99 H 12/30/17 14:09 12/30/17 14:09 12/30/17 14:09 12/30/17 14:09 General: Alert, Oriented x3, Cooperative, No apparent distress HEENT: Atraumatic Oral: Moist Mucosa Neck: Supple Lungs: Clear to auscultation, Normal air movement Cardiovascular: Regular rate, Regular Rhythm Extremities: Edema - 3+ pitting bilateral lower extremity edema, Peripheral Pulses Normal Skin: - - Redness and inflammation of bilateral lower extremities with small amount of serous drainage present, calluses present bilateral plantar surfaces and thickened yellow toenails bilaterally. He does continue to have his systemic skin redness and irritation that extends to his face abdomen, back, and bilateral upper extremities as well. Large amount of flaking skin diffusely present Wound Measurements and Assessment WC - Nurse 1 - General Ulcer Measurement Start: 12/23/17 13:56 Freq: Status: Active Protocol: Activity Type Activity Date Activity User E-Sign Co-Sign Detail Recorded Client Recorded Date Recorded By Document 12/30/17 14:09 [id number] 12/30/17 14:17 12/30/17 14:09 Wound Center Nurse 1 [Ulcer Assessment] #1- BLE EDEMA -Photo Taken No -Exudate Amt Small (1-33%) -Exudate Type Serosanguineous -Texture (Betty-wound Skin Appearance) Excoriation Localized Edema -Moisture (Betty-wound Skin Appearance No Abnormality ) -Color (Betty-wound Skin Appearance) Hemosiderin Staining -Temperature (Betty-wound Skin No Abnormality Appearance) (Pt Warm) -Ulcer Cleansing Wound Cleanser -Foul Odor after Cleansing No [Edema Assessment] -Right Calf (cm) 43.7 -Right Ankle (cm) 30 -Left Calf (cm) 43.6 -Left Ankle (cm) 29.6 Neurological: Neuro grossly intact Psych/Mental Status: Normal Affect, Alert and oriented to time, place, person, mood and affect Debridement Note Post-Debridement Measurements/Treatment WC - Nurse 2 - General Ulcer CM Notes Start: 12/23/17 13:56 Freq: Status: Active Protocol: Activity Type Activity Date Activity User E-Sign Co-Sign Detail Recorded Client Recorded Date Recorded By Document 12/23/17 14:58 [id number] 12/23/17 14:59 12/23/17 14:58 Wound Center Nurse 2 #1- BLE EDEMA -Time 14:59 -Correct Patient Yes -Correct Side, Site, Position Yes -Correct Procedure Yes -Procedure Performed No -Wound/Ulcer Outcome Not Healed -Ulcer Cleansing Not Cleansed -Foul Odor after Cleansing No -Bioengineered Tissue No -Bleeding Controlled with NA Pain Scale: 0-10 Numeric Is Patient Pain Free? Yes No debridement was completed today Assessment/Plan Active Problems Lymphedema of both lower extremities (Acute) PRP (pityriasis rubra pilaris) (Acute) Psoriasis (Acute) Assessment: Lymphedema bilateral lower extremities. PRP. Psoriasis Plan: The patient was seen and evaluated the wound healing center today and updated on his plan of care. He has been seen and evaluated by multiple specialists including the lymphedema clinic, a hr analyst, and a 911 emergency services dispatcher. Will request records for continuity of care and to prevent unnecessary repeat testing. Will request any prior vascular studies that were done recently, recent ABIs were reviewed and demonstrated 1.38 bilaterally no venous studies available at this time. Bilateral Unna boots will be reapplied as he did well with these last week. Will refer him to [facility] as the care from the lymphedema clinic at [facility] has been delayed. Given the systemic nature of his symptoms, do feel that there is a potential rheumatologic component which he has been seen by dermatology and rheumatology for and will continue with Enbrel therapy. Did discuss with him following up with his specialists regarding the use of yuzi-[id number]-[id number] creams for his dry skin on the lower extremities. His lymphedema and superficial wound care at this time will consist of the application of bilateral Unna boots. He will continue following up with a specialist and he will follow-up at the wound healing center in 1 weeks or sooner if needed. He will have a nurse visit and 3 days to changes in Unna boots. Did refer him previously to podiatry for his calluses and toenail trimming. Discuss red flag symptoms that require urgent medical attention patient verbalized understanding. Did discuss with patient that he should follow-up with his PCP to discuss medications to take for itching and to discuss pain medications for the bilateral foot pain that he continues to have. [place] disclaimer Code Visit Office Visits / Consults: [id number] OV L3 Est
--- NOTE | 2017-12-30 14:55 | PN.PCM_ITS ---
(1) Lymphedema of both lower extremities Status: Acute Current Visit: Yes Code(s): I89.0 - Lymphedema, not elsewhere classified (2) PRP (pityriasis rubra pilaris) Status: Acute Current Visit: Yes Code(s): L44.0 - Pityriasis rubra pilaris (3) Psoriasis Status: Acute Current Visit: Yes Code(s): L40.9 - Psoriasis, unspecified Type of Wound Date of Service: 12/30/17 Chief Complaint: Referred from lymphedema clinic, possible wounds on the lower extremities History of Wound: This is a 62-year-old white male who presents to the office today after being referred from the lymphedema clinic for possible wounds on his lower extremities. However the patient states that he does not have any open wounds currently on areas lower extremities and that he has been being treated with an antibiotic prophylactically to prevent new wounds from occurring. He states that he has been dealing with bilateral lymphedema and scaling of his lower extremities ?1.5 months. He has been seen by a vending technician and a port crane operator and at first, given the diffuse nature of his red scaly patches which are on his entire body, he was diagnosed with psoriasis. However he was most recently diagnosed with PRP via a biopsy and states that he has to start Humira tomorrow as prescribed by the vending technician. He states that for his lymphedema management he has currently been using Jobest stockings, he does state that he has some cracked areas on his feet, however they are not open. He has in the past used prescription strength steroid creams, however since he will be starting the Humira soon, he has discontinued all prescription strength creams. He denies any acute concerns at this time and does state that he had unna boots applied previously in the past. The patient otherwise denies any fever, chills, nausea, vomiting, shortness of breath, chest pain or pressure, palpitations, orthopnea, syncope or presyncopal episodes. Progress of Wound: The patient does not have any active wounds at this time. He states that his vending technician recently started him on Enbrel which is helping with his systemic psoriasis. He states that he has not started his lymphedema pumps as was ordered for him from the lymphedema clinic at [facility]. He continues to complain of lower extremity edema and redness with serous drainage, however the drainage and redness has somewhat improved with the use of the Unna boots. He also complains of calluses on bilateral plantar surfaces which she was previously referred to podiatry for. He denies any systemic signs of infection at this time. - Physical Exam Vital Signs Temp Pulse Resp BP 98.2 F 90 16 150/99 H 12/30/17 14:09 12/30/17 14:09 12/30/17 14:09 12/30/17 14:09 General: Alert, Oriented x3, Cooperative, No apparent distress HEENT: Atraumatic Oral: Moist Mucosa Neck: Supple Lungs: Clear to auscultation, Normal air movement Cardiovascular: Regular rate, Regular Rhythm Extremities: Edema - 3+ pitting bilateral lower extremity edema, Peripheral Pulses Normal Skin: - - Redness and inflammation of bilateral lower extremities with small amount of serous drainage present, calluses present bilateral plantar surfaces and thickened yellow toenails bilaterally. He does continue to have his systemic skin redness and irritation that extends to his face abdomen, back, and bilateral upper extremities as well. Large amount of flaking skin diffusely present Wound Measurements and Assessment WC - Nurse 1 - General Ulcer Measurement Start: 12/23/17 13:56 Freq: Status: Active Protocol: Activity Type Activity Date Activity User E-Sign Co-Sign Detail Recorded Client Recorded Date Recorded By Document 12/30/17 14:09 [id number] 12/30/17 14:17 12/30/17 14:09 Wound Center Nurse 1 [Ulcer Assessment] #1- BLE EDEMA -Photo Taken No -Exudate Amt Small (1-33%) -Exudate Type Serosanguineous -Texture (Betty-wound Skin Appearance) Excoriation Localized Edema -Moisture (Betty-wound Skin Appearance No Abnormality ) -Color (Betty-wound Skin Appearance) Hemosiderin Staining -Temperature (Betty-wound Skin No Abnormality Appearance) (Pt Warm) -Ulcer Cleansing Wound Cleanser -Foul Odor after Cleansing No [Edema Assessment] -Right Calf (cm) 43.7 -Right Ankle (cm) 30 -Left Calf (cm) 43.6 -Left Ankle (cm) 29.6 Neurological: Neuro grossly intact Psych/Mental Status: Normal Affect, Alert and oriented to time, place, person, mood and affect Debridement Note Post-Debridement Measurements/Treatment WC - Nurse 2 - General Ulcer CM Notes Start: 12/23/17 13:56 Freq: Status: Active Protocol: Activity Type Activity Date Activity User E-Sign Co-Sign Detail Recorded Client Recorded Date Recorded By Document 12/23/17 14:58 [id number] 12/23/17 14:59 12/23/17 14:58 Wound Center Nurse 2 #1- BLE EDEMA -Time 14:59 -Correct Patient Yes -Correct Side, Site, Position Yes -Correct Procedure Yes -Procedure Performed No -Wound/Ulcer Outcome Not Healed -Ulcer Cleansing Not Cleansed -Foul Odor after Cleansing No -Bioengineered Tissue No -Bleeding Controlled with NA Pain Scale: 0-10 Numeric Is Patient Pain Free? Yes No debridement was completed today Assessment/Plan Active Problems Lymphedema of both lower extremities (Acute) PRP (pityriasis rubra pilaris) (Acute) Psoriasis (Acute) Assessment: Lymphedema bilateral lower extremities. PRP. Psoriasis Plan: The patient was seen and evaluated the wound healing center today and updated on his plan of care. He has been seen and evaluated by multiple specialists including the lymphedema clinic, a port crane operator, and a vending technician. Will request records for continuity of care and to prevent unnecessary repeat testing. Will request any prior vascular studies that were done recently, recent ABIs were reviewed and demonstrated 1.38 bilaterally no venous studies available at this time. Bilateral Unna boots will be reapplied as he did well with these last week. Will refer him to [facility] as the care from the lymphedema clinic at [facility] has been delayed. Given the systemic nature of his symptoms, do feel that there is a potential rheumatologic component which he has been seen by dermatology and rheumatology for and will continue with Enbrel therapy. Did discuss with him following up with his specialists regarding the use of [id number] creams for his dry skin on the lower extremities. His lymphedema and superficial wound care at this time will consist of the application of bilateral Unna boots. He will continue following up with a specialist and he will follow-up at the wound healing center in 1 weeks or sooner if needed. He will have a nurse visit and 3 days to changes in Unna boots. Did refer him previously to podiatry for his calluses and toenail trimming. Discuss red flag symptoms that require urgent medical attention patient verbalized understanding. Did discuss with patient that he should follow-up with his PCP to discuss medications to take for itching and to discuss pain medications for the bilateral foot pain that he continues to have. [place] disclaimer Code Visit Office Visits / Consults: [id number] OV L3 Est
[2018-01-06 14:02] VITALS: RESP 16; TEMP 37.3
== END 2018-01-06 23:59 ==
LOC: WC 14:00
PROVIDERS: Family Provider Family Medicine; PCP Family Medicine; Visit Provider Nurse Practitioner Family
DX: I89.0 Lymphedema, not elsewhere classified (principal); L44.0 Pityriasis rubra pilaris; L40.9 Psoriasis, unspecified
CPT/HCPCS: 29580; 99212; 99213; G0463

== ENCOUNTER 2018-01-20 13:12 | Outpatient (RCR) | payer OTHER, SELFPAY ==
[2018-01-07 01:03] VITALS: BP 150/99; PULSE 90; RESP 16; TEMP 37.3
[2018-01-20 14:12] VITALS: BP 157/92; PULSE 88; RESP 18; TEMP 37.3
--- NOTE | 2018-01-20 19:12 | PCM.WC.PN ---
(1) Lymphedema of both lower extremities Status: Acute Code(s): I89.0 - Lymphedema, not elsewhere classified (2) PRP (pityriasis rubra pilaris) Status: Acute Code(s): L44.0 - Pityriasis rubra pilaris (3) Psoriasis Status: Acute Code(s): L40.9 - Psoriasis, unspecified Type of Wound Date of Service: 01/20/18 Chief Complaint: Referred from lymphedema clinic, possible wounds on the lower extremities History of Wound: This is a 62-year-old white male who presents to the office today after being referred from the lymphedema clinic for possible wounds on his lower extremities. However the patient states that he does not have any open wounds currently on areas lower extremities and that he has been being treated with an antibiotic prophylactically to prevent new wounds from occurring. He states that he has been dealing with bilateral lymphedema and scaling of his lower extremities ?1.5 months. He has been seen by a die maker trim and a pyrometer mechanic and at first, given the diffuse nature of his red scaly patches which are on his entire body, he was diagnosed with psoriasis. However he was most recently diagnosed with PRP via a biopsy and states that he has to start Humira tomorrow as prescribed by the die maker trim. He states that for his lymphedema management he has currently been using Jobest stockings, he does state that he has some cracked areas on his feet, however they are not open. He has in the past used prescription strength steroid creams, however since he will be starting the Humira soon, he has discontinued all prescription strength creams. He denies any acute concerns at this time and does state that he had unna boots applied previously in the past. The patient otherwise denies any fever, chills, nausea, vomiting, shortness of breath, chest pain or pressure, palpitations, orthopnea, syncope or presyncopal episodes. Progress of Wound: The patient does not have any active wounds at this time. He states that his die maker trim recently started him on Enbrel which has helped dramatically with his systemic psoriasis and lymphedema. His lower extremity edema and redness has almost resolved. He recently followed up with podiatry who treated his calluses and trimmed his toenails. He denies any systemic signs of infection at this time. - Physical Exam Vital Signs Temp Pulse Resp BP 99.1 F 88 18 157/92 H 01/20/18 14:12 01/20/18 14:12 01/20/18 14:12 01/20/18 14:12 General: Alert, Oriented x3, Cooperative, No apparent distress HEENT: Atraumatic Neck: Supple Lungs: Clear to auscultation, Normal air movement Cardiovascular: Regular rate, Regular Rhythm Extremities: Edema - +1 nonpitting edema BLLE, stops below knees, Peripheral Pulses Normal, - - severe dependent rubor Skin: - - areas of dry flaky skin and redness have improved on BLLE and abdomen Neurological: Cranial nerves II-XII grossly intact, Neuro grossly intact Psych/Mental Status: Normal Affect, Alert and oriented to time, place, person, mood and affect Debridement Note Post-Debridement Measurements/Treatment WC - Nurse 2 - General Ulcer CM Notes Start: 01/20/18 14:12 Freq: Status: Active Protocol: Activity Type Activity Date Activity User E-Sign Co-Sign Detail Recorded Client Recorded Date Recorded By Document 01/20/18 14:34 DV [id number] 01/20/18 14:40 DV 01/20/18 14:34 Pain Scale: 0-10 Numeric Is Patient Pain Free? Yes No debridement was completed today Assessment/Plan Assessment: Lymphedema bilateral lower extremities. PRP. Psoriasis Plan: The patient was seen and evaluated the wound healing center today and updated on his plan of care. He has been seen and evaluated by multiple specialists including the lymphedema clinic, a pyrometer mechanic, and a die maker trim. His lymphedema and psoriasis has improved with the use of enbrel and he no longer complains of any superficial drainage of the BLLE. Therefore, will be discharged from [facility] and follow up PRN. Continue with compression stockings daily and following up with podiatry and dermatology. Due to his severe dependent rubor of BLLE, was referred to Dr. Grullon for eval. Patient wishes to be given work restrictions d/t his chronic lower extremity pain, this will be deffered to PCP. Recent ABIs were reviewed and demonstrated 1.38 bilaterally no venous studies available at this time. [place] disclaimer Code Visit Office Visits / Consults: [id number] OV L3 Est
--- NOTE | 2018-01-26 09:20 | PN.PCM_ITS ---
(1) Lymphedema of both lower extremities Status: Acute Code(s): I89.0 - Lymphedema, not elsewhere classified (2) PRP (pityriasis rubra pilaris) Status: Acute Code(s): L44.0 - Pityriasis rubra pilaris (3) Psoriasis Status: Acute Code(s): L40.9 - Psoriasis, unspecified Type of Wound Date of Service: 01/20/18 Chief Complaint: Referred from lymphedema clinic, possible wounds on the lower extremities History of Wound: This is a 62-year-old white male who presents to the office today after being referred from the lymphedema clinic for possible wounds on his lower extremities. However the patient states that he does not have any open wounds currently on areas lower extremities and that he has been being treated with an antibiotic prophylactically to prevent new wounds from occurring. He states that he has been dealing with bilateral lymphedema and scaling of his lower extremities ?1.5 months. He has been seen by a narcotics and vice detective and a precast molder and at first, given the diffuse nature of his red scaly patches which are on his entire body, he was diagnosed with psoriasis. However he was most recently diagnosed with PRP via a biopsy and states that he has to start Humira tomorrow as prescribed by the narcotics and vice detective. He states that for his lymphedema management he has currently been using Jobest stockings, he does state that he has some cracked areas on his feet, however they are not open. He has in the past used prescription strength steroid creams, however since he will be starting the Humira soon, he has discontinued all prescription strength creams. He denies any acute concerns at this time and does state that he had unna boots applied previously in the past. The patient otherwise denies any fever, chills, nausea, vomiting, shortness of breath, chest pain or pressure, palpitations, orthopnea, syncope or presyncopal episodes. Progress of Wound: The patient does not have any active wounds at this time. He states that his narcotics and vice detective recently started him on Enbrel which has helped dramatically with his systemic psoriasis and lymphedema. His lower extremity edema and redness has almost resolved. He recently followed up with podiatry who treated his calluses and trimmed his toenails. He denies any systemic signs of infection at this time. - Physical Exam Vital Signs Temp Pulse Resp BP 99.1 F 88 18 157/92 H 01/20/18 14:12 01/20/18 14:12 01/20/18 14:12 01/20/18 14:12 General: Alert, Oriented x3, Cooperative, No apparent distress HEENT: Atraumatic Neck: Supple Lungs: Clear to auscultation, Normal air movement Cardiovascular: Regular rate, Regular Rhythm Extremities: Edema - +1 nonpitting edema BLLE, stops below knees, Peripheral Pulses Normal, - - severe dependent rubor Skin: - - areas of dry flaky skin and redness have improved on BLLE and abdomen Neurological: Cranial nerves II-XII grossly intact, Neuro grossly intact Psych/Mental Status: Normal Affect, Alert and oriented to time, place, person, mood and affect Debridement Note Post-Debridement Measurements/Treatment WC - Nurse 2 - General Ulcer CM Notes Start: 01/20/18 14:12 Freq: Status: Active Protocol: Activity Type Activity Date Activity User E-Sign Co-Sign Detail Recorded Client Recorded Date Recorded By Document 01/20/18 14:34 DV [id number] 01/20/18 14:40 DV 01/20/18 14:34 Pain Scale: 0-10 Numeric Is Patient Pain Free? Yes No debridement was completed today Assessment/Plan Assessment: Lymphedema bilateral lower extremities. PRP. Psoriasis Plan: The patient was seen and evaluated the wound healing center today and updated on his plan of care. He has been seen and evaluated by multiple specialists including the lymphedema clinic, a precast molder, and a narcotics and vice detective. His lymphedema and psoriasis has improved with the use of enbrel and he no longer complains of any superficial drainage of the BLLE. Therefore, will be discharged from [facility] and follow up PRN. Continue with compression stockings daily and following up with podiatry and dermatology. Due to his severe dependent rubor of BLLE, was referred to Dr. Grullon for eval. Patient wishes to be given work restrictions d/t his chronic lower extremity pain, this will be deffered to PCP. Recent ABIs were reviewed and demonstrated 1.38 bilaterally no venous studies available at this time. [place] disclaimer Code Visit Office Visits / Consults: [id number] OV L3 Est
== END 2018-02-05 23:59 ==
LOC: WC 13:12
PROVIDERS: Family Provider Family Medicine; PCP Family Medicine; Visit Provider Nurse Practitioner Family
DX: I89.0 Lymphedema, not elsewhere classified (principal); L40.9 Psoriasis, unspecified; L44.0 Pityriasis rubra pilaris
CPT/HCPCS: 99203; 99213; G0463

== ENCOUNTER → 2018-02-03 14:55 | Outpatient (CLI) | payer OTHER, SELFPAY ==
[2018-02-03 16:03] LABS: Anion Gap 6 (5-15); BUN 13 mg/dL (7-18); Calcium,Total 8.6 mg/dL (8.5-10.1); Chloride 94 mmol/L (98-107); Creatinine, Serum 0.81 mg/dL (0.70-1.30); EST Glomerular Filtration Rate 102 mL/min (>60); Est Glom Filt Rate - Afr Amer 123 mL/min (>60); Glucose 108 mg/dL (74-106); Potassium 4.3 mmol/L (3.5-5.1); Sodium Level 129 mmol/L (136-145)
== END ==
PROVIDERS: Family Provider Family Medicine; PCP Family Medicine; Visit Provider Family Medicine
DX: R60.0 Localized edema (principal)
CPT/HCPCS: 36415; 80048

== ENCOUNTER → 2018-03-03 14:11 | Outpatient (CLI) | payer OTHER, SELFPAY ==
[2018-03-03 16:23] LABS: Anion Gap 8 (5-15); BUN 12 mg/dL (7-18); Calcium,Total 8.7 mg/dL (8.5-10.1); Chloride 98 mmol/L (98-107); Creatinine, Serum 0.93 mg/dL (0.70-1.30); EST Glomerular Filtration Rate 87 mL/min (>60); Est Glom Filt Rate - Afr Amer 106 mL/min (>60); Glucose 101 mg/dL (74-106); Potassium 4.1 mmol/L (3.5-5.1); Sodium Level 134 mmol/L (136-145)
== END ==
PROVIDERS: Family Provider Family Medicine; PCP Family Medicine; Visit Provider Family Medicine
DX: R60.0 Localized edema (principal)
CPT/HCPCS: 36415; 80048

== ENCOUNTER → 2018-06-08 13:28 | Outpatient (CLI) | payer OTHER, SELFPAY ==
[2018-06-08 15:05] LABS: ALB/GLOB Ratio 1.1 RATIO (0.9-2.4); AST(SGOT) 20 U/L (15-37); Alanine Aminotransfer ALT/SGPT 28 U/L (16-61); Albumin, Serum 3.8 g/dL (3.2-5.0); Alkaline Phosphatase 60 U/L (45-117); Anion Gap 9 (5-15); BUN 16 mg/dL (7-18); BUN/Creat Ratio 14.4 RATIO (10-20); Calcium,Total 8.7 mg/dL (8.5-10.1); Chloride 98 mmol/L (98-107); Cholesterol 134 mg/dL (200); Creatinine, Serum 1.11 mg/dL (0.70-1.30); EST Glomerular Filtration Rate 71 mL/min (>60); Est Glom Filt Rate - Afr Amer 86 mL/min (>60); Globulin 3.4 g/dL (2.2-4.2); Glucose 112 mg/dL (74-106); High Density Lipoprotein 79 mg/dL; Potassium 4.4 mmol/L (3.5-5.1); Protein, Total 7.2 g/dL (6.4-8.2); Sodium Level 134 mmol/L (136-145); Triglycerides 33 mg/dL; Very Low Density Lipoprotein 7 mg/dL (5-40)
== END ==
PROVIDERS: Family Provider Family Medicine; PCP Family Medicine; Referring Provider Family Medicine; Visit Provider Family Medicine
DX: I10 Essential (primary) hypertension (principal)
CPT/HCPCS: 36415; 80053; 80061

== ENCOUNTER → 2019-01-09 | Outpatient (CLI) | payer OTHER, SELFPAY ==
[2018-11-11 13:35] VITALS: BMI 27.8
[2019-01-09 13:52] LABS: Absolute Lymphocyte Count 0.63 X10^3/ul (0.83-4.51); Absolute Neutrophil Count 3.2 X10^3/uL (2.0-7.7); Basophil# 0.03 X10^3/uL; Basophil% 0.7 % (0-1); Eosinophil# 0.08 X10^3/uL; Eosinophils% 1.8 % (0-5); Hematocrit 42.4 % (40-54); Hemoglobin 14.7 g/dl (13.0-16.5); Lymphocyte # 0.63 X10^3/ul (4.0); Lymphocyte % 14.2 % (19-41); Mean Corp Hgb Conc 34.7 g/gl (32-36); Mean Corpuscular Hgb 32.8 pg (27.0-32.0); Mean Corpuscular Volume 94.6 fL (80-94); Mean Platelet Vol. 9.3 fl (6.2-12.0); Monocyte# 0.54 X10^3/uL; Monocyte% 12.2 % (0-10); Neutrophil # 3.15 X10^3/uL (2.7-7.7); Neutrophil % 70.9 % (47-70); Platelet Count 201 K/mm3 (150-450); RBC Distribution Width CV 12.3 % (11.6-14.6); RBC Distribution Width SD 42.2 fl (35.1-43.9); Red Blood Count 4.48 M/mm3 (4.6-6.2); White Blood Count 4.4 K/mm3 (4.4-11.0)
[2019-01-09 13:57] LABS: POSITIVE COUNT NO; POSITIVE DIFFERENTIAL NO; POSITIVE MORPHOLOGY NO
[2019-01-09 14:02] LABS: Anion Gap 5 (5-15); BUN 15 mg/dL (7-18); BUN/Creat Ratio 17.1 RATIO (10-20); Calcium,Total 8.5 mg/dL (8.5-10.1); Chloride 99 mmol/L (98-107); Creatinine, Serum 0.88 mg/dL (0.70-1.30); EST Glomerular Filtration Rate 93 mL/min (>60); Est Glom Filt Rate - Afr Amer 112 mL/min (>60); Glucose 110 mg/dL (74-106); Potassium 4.2 mmol/L (3.5-5.1); Sodium Level 132 mmol/L (136-145)
[2019-01-12 06:07] LABS: QNTFERON TB Mitogen Value > 10.00 IU/mL (.); QNTFERON TB Nil Value 0.01 IU/mL (.); QNTFERON TB1+ Ag Value 0.02 IU/mL (.); QNTFERON TB2+ Ag Value 0.01 IU/mL (.)
[2019-01-12 08:27] LABS: QNTIFERON TB Positive Criteria Negative (Negative)
== END | disposition home or self-care (01) ==
LOC: MTLAB 11:44
PROVIDERS: Family Provider Family Medicine; PCP Family Medicine; Referring Provider Nurse Practitioner Family; Visit Provider Nurse Practitioner Family
DX: L40.0 Psoriasis vulgaris (principal); Z79.899 Other long term (current) drug therapy; L44.0 Pityriasis rubra pilaris
CPT/HCPCS: 36415; 80048; 85025; 86480

== ENCOUNTER → 2022-02-06 | Outpatient (CLI) | payer MEDICARE, SELFPAY ==
[2022-02-06 15:46] LABS: Hematocrit 40.1 % (40-54); Hemoglobin 13.9 g/dL (13.0-16.5); Mean Corp Hgb Conc 34.7 g/dL (32-36); Mean Corpuscular Volume 95.2 fL (80-94); Mean Platelet Vol. 9.6 fl (6.2-12.0); Platelet Count 214 K/mm3 (150-450); RBC Distribution Width CV 11.9 % (11.6-14.6); RBC Distribution Width SD 41.3 fl (35.1-43.9); Red Blood Count 4.21 M/mm3 (4.6-6.2); White Blood Count 4.8 K/mm3 (4.4-11.0)
[2022-02-06 15:57] LABS: Vitamin B12 491 pg/mL (211-911)
[2022-02-06 16:10] LABS: ALB/GLOB Ratio 1.1 RATIO (0.9-2.4); AST(SGOT) 23 U/L (15-37); Alanine Aminotransfer ALT/SGPT 26 U/L (16-61); Albumin, Serum 3.7 g/dL (3.2-5.0); Alkaline Phosphatase 54 U/L (45-117); Anion Gap 9 (5-15); BUN 11 mg/dL (7-18); BUN/Creat Ratio 12.2 RATIO (10-20); Calcium,Total 8.6 mg/dL (8.5-10.1); Chloride 97 mmol/L (98-107); EST Glomerular Filtration Rate 89 mL/min (>60); Est Glom Filt Rate - Afr Amer 107 mL/min (>60); Globulin 3.4 g/dL (2.2-4.2); Glucose 122 mg/dL (74-106); Potassium 4.1 mmol/L (3.5-5.1); Protein, Total 7.1 g/dL (6.4-8.2); Sodium Level 130 mmol/L (136-145); Thyroid Stim Hormone (TSH) 1.04 uIU/mL (0.358-3.74)
[2022-02-10 16:20] LABS: ANTINUCLEAR ANTIBODIES DIRECT Negative (Negative)
[2022-02-12 00:07] LABS: Free Kappa Light Chains 19.6 mg/L (3.3-19.4); Free Lambda Light Chains 15.9 mg/L (5.7-26.3)
[2022-02-16 13:21] LABS: Vitamin B1, Thiamine 139.2 nmol/L (66.5-200.0)
== END | disposition home or self-care (01) ==
PROVIDERS: PCP Family Medicine; Referring Provider Psychiatry & Neurology Neurology; Visit Provider Psychiatry & Neurology Neurology
DX: G62.9 Polyneuropathy, unspecified (principal); R26.9 Unspecified abnormalities of gait and mobility
CPT/HCPCS: 36415; 80053; 82607; 82746; 83883; 84425; 84443; 85027; 86038; 86225; 86235

== ENCOUNTER 2022-03-04 15:43 | Outpatient (RCR) | payer MEDICARE, SELFPAY ==
--- NOTE | 2022-03-04 16:56 | HP.PTEVAL_ITS ---
Patient's Visit Information SARAH CATHERINE is a 66 year old M referred to Physical Therapy by Dr. Mehdi Gomez MD with a diagnosis of Polyneuropathy, radiculopathy. Date of Evaluation: 03/04/22 Physical Therapist: Harpreet Cruz, DPT, OCS, CSCS - Visit Plan Frequency: 2x /Week Duration: 2-4 Weeks Plan: 2x/week for 2-4 weeks, 2 scheduled to start , please try to get I with balance(weight shifts, step and recover, narrow stance) adn LE strength that patient can do at home with pics. Try some LB flexion stretches also. Try to get I in 2 weeks with pics as patient wants to minimize time in therapy due to questionable prognosis - Subjective Neurologist suggested therapy. had back surgery in 2012 and that took care of pain. Shortly after legs have gotten weak and balance off on uneven ground and steps challenging up due to balance. It may be worsening lately. Had EMG and seeing problems with reflexes in arms and legs. Legs were fine before surgery. No pain. Has been putting up with this for a long time. 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 Activitiy level now is less, works 12 hrs week at [employer]. No falls no dizzyness. Feet are numb but not sure why. Sleep is OK. Dong basic ADLs aOK, sits for shower, doesn't trust to stand, having handles added. Hobbies include working around house, this does not limit him other than having to be careful and needs arms to pull up off floor if kneeling. LB surgery was a discectomy is described. Dr Strong referred him. MRI will check LB and nerves in leg. - Objective Patient walks into PT I on firm flat surface with neuropathic gait pattern lacking push off and weight shift and wider LYDIA. Transfers chair I without UE, steps reciprocal without rail up and requires rail down with descending weakne ss. floor trasnfer through half kneel requires UE support due to weakness in knee flexed positions. LB AROM ext and flexion is very tight and limited but no pain, lumbar area hardly moves, SB are mod limtied in lumbar. has stiffness in quads Max and HS mod. - slump and - SLR. Hip and knee AROM WFL. ankles stiff and tight in gastrocs but WFL on ROM. Coordination to reciprocal movements min deficits and heel to montaño is min deficit. reflex patella 1/3 adn achilles 0/3 B. Sensation WNL to gross light touch in ankles and legs, bottom of feet feels odd. Strength hips 4/5, knees 4+ and ankles 4+ to testing, weakness in heel raises with min ROM even holding on. - Balance/Special Test Scores Functional Gait Assessment Score: 25 % Disability: 16.6700 CATSIB Score (Max score 120 seconds): 120 Oswestry Low Back Score: 4 - Goals Goal 1:: ST: I appropriate HEP to minimize future balance deficits Goal Time Frame: 2-4 Weeks Goal 2:: LT : FGA and heel rasie easily to help with mobility Goal Time Frame: 4-6 Weeks Goal 3:: Pt feel 505 better in balance Goal Time Frame: 4-6 Weeks - Rehabilitation Potential Physical Therapy Diagnosis: Gait and balance deficits form neuropathy of unknown etiology. Rehabilitation Potential: Questionable - Anticipated Interventions Patient/Client Instruction: Educate patient on: Condition, Plan of Care For the Purpose of:: To increase ROM, To improve nutrient delivery to tissue, To improve muscle performance and motor function, To increase tolerance to activity/condition/position Therapeutic Exercise to Include: Strength training, Balance training, Flexibilty training For the Purpose of:: To increase ROM, To improve muscle performance and motor function, To improve ability to perform ADL's, To improve ability of physical actions for home/community/work/leisure, To improve gait and locomotor functions Thank you for the opportunity to evaluate your patient. For Medicare and Medicare HMO plans, please review the plan of care and approve it. It will need to be FAXED BACK to us at [phone] for Medicare purposes. For Medicare only, by signing this I certify the plan of care. Please let me know if there are questions or concerns regarding this plan of care. Physician Signature: Date:
--- NOTE | 2022-03-18 07:12 | HP.PT.NRP ---
SARAH CATHERINE was seen in my office for initial evaluation on 03/04/22. The following Plan of Care was established for this patient: Initial Frequency: 2x /Week Initial Duration: 2-4 Weeks Patient/Client Instruction: Educate patient on: Condition, Plan of Care For the Purpose of:: To increase ROM, To improve nutrient delivery to tissue, To improve muscle performance and motor function, To increase tolerance to activity/condition/position Therapeutic Exercise to Include: Strength training, Balance training, Flexibilty training For the Purpose of:: To increase ROM, To improve muscle performance and motor function, To improve ability to perform ADL's, To improve ability of physical actions for home/community/work/leisure, To improve gait and locomotor functions This patient was last seen in our office 03/04/22. Pertinent comments regarding their Physical therapy will appear below: Pt seen for initial visit and POC established. He called before his next session to cancel and stated he decided not to go through with therapy. At this point, I will discontinue him at his request. At this point I will be discontinuing this patient from physical therapy. I would be happy to see this patient again in the future if found appropriate by the physician. Thank you! Harpreet Cruz, DPT, OCS, CSCS Balance/Gait/Functional tests - Balance/Special Test Scores Functional Gait Assessment Score: 25 % Disability: 16.6700 CATSIB Score (Max score 120 seconds): 120 Oswestry Low Back Score: 4
== END 2022-03-04 19:00 | disposition home or self-care (01) ==
LOC: PT 15:43
PROVIDERS: PCP Family Medicine; Referring Provider Psychiatry & Neurology Neurology; Visit Provider Psychiatry & Neurology Neurology
DX: M54.16 Radiculopathy, lumbar region (principal); G62.9 Polyneuropathy, unspecified; R26.9 Unspecified abnormalities of gait and mobility
CPT/HCPCS: 97162

== ENCOUNTER → 2022-06-10 | Outpatient (CLI) | payer MEDICARE, SELFPAY ==
[2022-06-10 18:18] LABS: Hemoglobin A1c 5.3 % (3.8-5.6)
[2022-06-15 13:07] LABS: Albumin 3.9 g/dL (2.9-4.4); Alpha-1-Globulins 0.2 g/dL (0.0-0.4); Alpha-2-Globulins 0.6 g/dL (0.4-1.0); Gamma Globulin 1.2 g/dL (0.4-1.8); Immunoglobulin A 368 mg/dL (61-437); Immunoglobulin G 1195 mg/dL (603-1613); Immunoglobulin M 72 mg/dL (20-172)
== END | disposition home or self-care (01) ==
LOC: MTLAB 15:13
PROVIDERS: PCP Family Medicine; Referring Provider Psychiatry & Neurology Neurology; Visit Provider Psychiatry & Neurology Neurology
DX: G62.9 Polyneuropathy, unspecified (principal); R73.9 Hyperglycemia, unspecified
CPT/HCPCS: 36415; 82784; 83036; 84165; 86334; 86335

== ENCOUNTER 2024-02-28 13:45 | Outpatient (RCR) | payer MEDICARE, SELFPAY ==
[2024-02-28 13:58] VITALS: BP 151/76; PULSE 82; RESP 18; TEMP 37.1; BMI 28.0
--- NOTE | 2024-02-28 15:39 | PCM.WC.HP ---
History of Present Illness Date of Service: 02/28/24 Chief Complaint: Referred from lymphedema clinic, possible wounds on the lower extremities History of Wound: This is a 68-year-old white male who presents to the office today for compression stockings for edema/lymphedema management. He was referred by Nitza Van. He was recently treated for cellulitis by his PCP with Doxycycline x 14 days. He has been seen here in the past for lower extremity edema/Lymphedema and cellulitis. He states he started wearing his compression stockings that he obtained in 2018 ([employer] stockings) when he was a patient here. He states that his edema had resolved and he no longer needed the compression stockings. 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 He was treated with Cosentyx monthly 01/24-07/27, he stopped due to being clear. He states that he started to experience peeling skin on the palmar surface of his hands and the souls of his feet so he recently returned to dermatology. They placed Unna boots on his lower extremities bilaterally and him removed them a few days later. They also started him on Bimzelx injection for treatment of his psoriasis. He states that the Unna boots helped with his edema and the dryness on his legs but once he started to walk around, the swelling returned. He also has a history of hypertension, peripheral neuropathy, and back pain, he denies having any history of diabetes, CHF, or heart disease. He states that he went back to see dermatology for his psoriasis and they placed Unna boots on him. He states that it helped with his swelling. He had arterial studies 09/29/17 which showed RBI - 1.13 and LBI - 0.99. He had triphasic waveforms bilaterally and there was no evidence of significant atherosclerotic peripheral arterial occlusive disease in the lower extremities bilaterally. Venous Duplex US 09/17/17 - Deep veins of the lower extremities are bilaterally patent and compressible segmentally. There is no evidence of deep vein thrombosis on either side. Valvular competence appears intact within the proximal deep venous systems bilaterally. The greater saphenous veins appear bilaterally patent and compressible segmentally. Today he denies any fever, chills, nausea, vomiting, diarrhea, or shortness of breath. Progress of Wound: His lower extremities look remarkably good for his history of lymphedema and cellulitis. This is most likely because he has been to see dermatology who placed him in Unna boots and he was treated for his cellulitis and he has been off work for a few weeks. Bilateral lower legs have +2 - +3 pitting edema. No wounds on lower extremities, skin is intact. No erythema or clinical signs of infection. Pedal pulses palpable. Capillary refill <3 seconds. He has thick plaques of peeling skin on plantar surface of feet bilaterally. [facility] Medical History PRP (pityriasis rubra pilaris) Left shoulder strain Nondisplaced fracture of neck of left radius Hearing problem Bone fracture History of back problems RLS (restless legs syndrome) Dyslipidemia Hemorrhoids Arthritis Back pain HTN (hypertension) Home Medications ?Medication ?Instructions ?Recorded ?Last Taken ?Type clonazepam 1 mg tablet PO 30 days #30 tabs 09/16/18 Unknown History aspirin 81 mg chewable tablet 81 mg PO DAILY 10/04/18 Unknown History (Florencio Chewable Low Dose Aspirin) lisinopril 20 mg tablet 40 mg PO DAILY 30 days #60 tabs 01/23/22 Unknown History metoprolol succinate 25 mg 25 mg PO DAILY 01/23/22 Unknown History tablet,extended release 24 hr tamsulosin 0.4 mg capsule 0.4 mg PO DAILY 01/23/22 Unknown History cyclobenzaprine 10 mg tablet 10 mg PO TID PRN muscle spasm #30 05/25/22 Unknown Rx tabs ibuprofen 800 mg tablet 800 mg PO TID PRN pain #30 tabs 05/25/22 Unknown Rx Allergy/AdvReac Type Severity Reaction Status Date / Time furosemide (From Lasix) Allergy Intermediate rash Verified 01/24/24 15:36 ciprofloxacin Allergy Unknown Other Verified 01/24/24 15:36 Family History Sister Hypertension Surgical History history left thumb surgery History of back surgery (~2012) Social History household members: none current occupational status: employed and retired current occupational exposures/hazards: No Smoking Status: Former smoker Smokeless tobacco user: chewing tobacco second hand exposure: No alcohol intake: current alcohol intake frequency: a few times a month Alcohol type: beer details: socially substance use type: does not use what type of physical activity do you participate in: none luz maria/orthodoxy: Jew seatbelt use: always ROS Constitutional Constitutional: Denies chills, fever(s) or frequent falls Eyes Eyes: Reports requires corrective lenses ENT HEENT: Reports abnormal hearing Cardiovascular Cardiovascular: Reports edema; Denies chest pain or dyspnea Respiratory/Chest Respiratory/Chest: Denies cough or dyspnea Gastrointestinal Gastrointestinal: Denies diarrhea, nausea or vomiting Musculoskeletal Musculoskeletal: Reports as per HPI Integumentary Integumentary: Reports as per HPI Neurologic Neurologic: Reports as per HPI Psychiatric Psychiatric: Reports none Endocrine Endocrinology: Reports none Hematologic/Lymphatic Hematologic/Lymphatic: Reports none Allergic/Immunologic Allergic/Immunologic: Reports none Vital Signs Vital Signs Vital Signs: 02/28/24 13:58 Temperature 98.8 F Temperature Source Temporal Pulse Rate 82 Respiratory Rate 18 Blood Pressure 151/76 H Blood Pressure Mean 101 Blood Pressure Source Monitor Blood Pressure Position Sitting Blood Pressure Location Left Arm Oxygen Delivery Method Room Air Weight Weight: 224 lb Body Mass Index (BMI) 28.0 Physical Exam Const alert, oriented x3 and no apparent distress General Appearance: cooperative HEENT normocephalic Head and Scalp: atraumatic Eyes General Eye: normal appearance of both eyes Neck full ROM Lymph Lymphatic: lymphedema mild and pitting Resp normal respiratory effort, normal air movement and clear to auscultation bilaterally Effort and Inspection: able to speak in complete sentences Cardio regular rate and regular rhythm Peripheral Pulses: pulses 2+ throughout GI soft to palpation and non-tender Back/Spine normal ROM Extremity normal capillary refill Skin Skin Narrative: Peeling skin of bilateral palmar surfaces of hands. Peeling skin on bilateral plantar surfaces of feet. He has thick plaques of skin that area peeling, some of the areas were trimmed to prevent them from tearing good skin. He has +2-+3 pitting edema bilateral lower legs. Skin intact on bilateral lower legs. Neuro oriented x3 and CN's II-XII intact bilaterally Psych mental status grossly normal, thought process normal, cooperative and affect normal Appearance: appropriate Debridement Note Debridement Note No debridement was completed: No debridement was completed today Post-Debridement Measurements and Additional Note: Post-Debridement Measurements/Treatment - Nurse 1 - General Ulcer Assessment Start: 02/28/24 13:58 Freq: Status: Active Protocol: PATRICK Activity Type Activity Date Activity User E-sign Co-sign Detail Recorded Client Recorded Date Recorded By Document 02/28/24 13:58 KW l 02/28/24 14:04 KW Edit Result 02/28/24 13:58 KW (1) l 02/28/24 14:08 KW (1) Right - Posterior Tibial Palpable => Yes - Posterior Tibial Doppler => Multiphasic - Dorsalis Pedis Palpable => Yes - Dorsalis Pedis Doppler => Multiphasic - Extremity Color => Hemosiderin - Hair Growth on Legs => No - Hair Growth on Toes => No - Capillary Refill => Less than 3 => Seconds - Thick => No - Discolored => No - Deformed => No - Improper Length & Hygeine => No Left - Posterior Tibial Palpable => Yes - Posterior Tibial Doppler => Multiphasic - Dorsalis Pedis Palpable => Yes - Dorsalis Pedis Doppler => Multiphasic - Extremity Color => Hemosiderin - Hair Growth on Legs => No - Hair Growth on Toes => No - Capillary Refill => Less than 3 => Seconds - Thick => No - Discolored => No - Deformed => No - Improper Length & Hygeine => No 02/28/24 13:58 - Today's Visit Information Type of service Initial Visit Arrival Mode Ambulatory Patient Identification Verified (Name & Yes ) Height and Weight Height 6 ft 3 in Weight 224 lb Weight in Pounds 224.0 lbs Weight Measurement Method Estimated by Patient Body Mass Index (BMI) 28.0 BMI Classification Overweight BSA - Claude 2.30 Vital Signs Temperature (97.8 F-99.1 F) 98.8 F Temperature Source Temporal Pulse Rate (60-100) 82 Pulse Location Monitor Respiratory Rate (12-18) 18 Respiratory rate source Observation Oxygen Delivery Method Room Air Blood Pressure (90/60-120/80) 151/76 H Blood Pressure Mean 101 Source Monitor Position Sitting Blood Pressure Location Left Arm History Since Last Visit- (Skip if this is Patient's initial visit) Left Footwear Regular Shoe Right Footwear Regular Shoe Pain Scale: 0-10 Numeric Is Patient Pain Free? Yes Lower Extremity Assessment/ Foot Assessment/ Toe Nail Assessment Right -Posterior Tibial Palpable Yes -Posterior Tibial Doppler Multiphasic -Dorsalis Pedis Palpable Yes -Dorsalis Pedis Doppler Multiphasic -Extremity Color Hemosiderin -Hair Growth on Legs No -Hair Growth on Toes No -Capillary Refill Less than 3 Seconds -Thick No -Discolored No -Deformed No -Improper Length & Hygeine No Left -Posterior Tibial Palpable Yes -Posterior Tibial Doppler Multiphasic -Dorsalis Pedis Palpable Yes -Dorsalis Pedis Doppler Multiphasic -Extremity Color Hemosiderin -Hair Growth on Legs No -Hair Growth on Toes No -Capillary Refill Less than 3 Seconds -Thick No -Discolored No -Deformed No -Improper Length & Hygeine No Teaching Assessment Preferences Verbal,Written, Demonstration Barriers to Learning None Readiness To Learn Excellent Willingness to Engage in Self Management High Activies Readiness to Engage in Self Management High Activities Anxiety Level Calm Cooperation Cooperative Perception Coherent Interest in Health Problem Asks Questions Education Importance Acknowledges Need Does Patient Smoke tobacco or other Yes substances Is Patient Diabetic No Functional Assessment Recent Decline in Ability to Perform Denies Any 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 Stainless Steel Finisher to contact place of baptism No WC - Nurse 2 - General Ulcer CM Notes Start: 02/28/24 13:58 Freq: Status: Active Protocol: Activity Type Activity Date Activity User E-sign Co-sign Detail Recorded Client Recorded Date Recorded By Document 02/28/24 14:14 BMF [id number] 02/28/24 14:32 BMF 02/28/24 14:14 Pain Scale: 0-10 Numeric Is Patient Pain Free? Yes WC - Nurse 3 - General Ulcer D/C NN Start: 02/28/24 13:58 Freq: Status: Active Protocol: Activity Type Activity Date Activity User E-sign Co-sign Detail Recorded Client Recorded Date Recorded By Document 02/28/24 14:43 DL [id number] 02/28/24 14:45 DL 02/28/24 14:43 Wound Care Center Nurse 3 thuy -Multi-Layered Wrap Application Unna Boot - Bilateral ($) Treatment Response Procedure Tolerated Well Pain Scale: 0-10 Numeric Is Patient Pain Free? Yes WC - Visit Discharge Discharge Condition Stable Ambulatory Status Ambulatory Transportation Private Auto Notes: No wound, edema only Charges/Coding Visit Charges Office Visits / Consults: [id number] OV L4 Est 30min Assessment/Plan Assessment/Plan (1) Bilateral lower extremity edema: CODE(S): R60.0 - Localized edema (2) Lymphedema of both lower extremities: CODE(S): I89.0 - Lymphedema, not elsewhere classified (3) Psoriasis: CODE(S): L40.9 - Psoriasis, unspecified PLAN: Plan Patient evaluated at the wound healing center. Although his last vascular testing was normal in 2018, he would benefit from updated testing for his bilateral lower extremity edema/lymphedema. I will order both arterial and venous studies. This will help with the type of compression that he may need. We will place bilateral Unna boots on him today. This will help with both the edema and with the peeling skin on his feet. He states that he has an appointment on with dermatology, and they can remove the Unna boots at that time and determine if he needs them replaced. If they do not replace the Unna boots, then he needs to come into the wound center for a nurse's visit to have the Unna boots replaced. He needs to have the compression so we can have better control of his edema before measuring him for compression stockings. Counseled patient that he will need to wear compression every day to help control his lymphedema. He may benefit from compression pumps to use at home to help control his lymphedema. Encouraged him to keep his feet elevated when sitting. Follow up one week. Greater than 35 minutes spent with patient, plan of care, reviewing old records.
--- NOTE | 2024-03-08 09:38 | WC ---
PHOTO 02/28/24 RIGHT LOWER EXTREMITY (I)
--- NOTE | 2024-03-08 09:42 | WC ---
PHOTO 02/28/24 RLE EDEMA (I)
--- NOTE | 2024-03-08 09:45 | WC ---
PHOTO LLE EDEMA 02/28/24
== END 2024-03-08 23:59 | disposition home or self-care (01) ==
LOC: WC 13:45
PROVIDERS: PCP Family Medicine; Referring Provider Dermatology Pediatric Dermatology; Visit Provider Nurse Practitioner Family
DX: R60.0 Localized edema (principal); I89.0 Lymphedema, not elsewhere classified; E78.5 Hyperlipidemia, unspecified; L40.9 Psoriasis, unspecified; I10 Essential (primary) hypertension; Z87.891 Personal history of nicotine dependence
CPT/HCPCS: 29580; 99213; G0463

== ENCOUNTER → 2025-06-05 | Outpatient (CLI) | payer MEDICARE, SELFPAY ==
--- NOTE | 2025-06-05 15:30 | CT_ITS ---
PROCEDURE: CT/Sinus/Facial Bone
== END | disposition home or self-care (01) ==
LOC: CT 15:26
PROVIDERS: PCP Family Medicine; Referring Provider Otolaryngology; Visit Provider Otolaryngology
DX: J32.8 Other chronic sinusitis (principal)
CPT/HCPCS: 70486